=== PATIENT | male | born 1985 | race Hispanic/Latino ===

== ENCOUNTER 2021-08-12 22:49 | Emergency (ER) | payer OTHER ==
[~2021-08-12] VITALS: Ht 157.5 cm; Wt 62.6 kg
[2021-08-12 22:52] VITALS: BP 120/85
[2021-08-12] MEDS ORDERED: IBUPROFEN 600 MG TABLET PO ONE (23:00)
== END 2021-08-12 23:31 | disposition home or self-care (01) ==
LOC: EDH 22:49
DX: S52.601A Unspecified fracture of lower end of right ulna, initial encounter for closed fracture (principal); X58.XXXA Exposure to other specified factors, initial encounter; Y93.89 Activity, other specified; Y92.89 Other specified places as the place of occurrence of the external cause; Y99.8 Other external cause status
CPT/HCPCS: 29105; 73090; 73100

== ENCOUNTER 2022-10-07 11:29 | Emergency (ER) | payer OTHER ==
[~2022-10-07] VITALS: Ht 157.5 cm; Wt 56.7 kg
[2022-10-07 11:31] VITALS: BP 121/74
[2022-10-07] MEDS ORDERED: IBUPROFEN 600 MG TABLET PO ONE (12:30)
== END 2022-10-07 13:41 | disposition home or self-care (01) ==
LOC: EDH 11:29
DX: S93.691A Other sprain of right foot, initial encounter (principal); X58.XXXA Exposure to other specified factors, initial encounter; Y93.39 Activity, other involving climbing, rappelling and jumping off; Y92.89 Other specified places as the place of occurrence of the external cause; Y99.8 Other external cause status
CPT/HCPCS: 73630